=== PATIENT | female | born 1985 | race African-American/Black ===

== ENCOUNTER 2018-03-01 10:13 | Emergency (ER) | payer OTHER ==
[2018-03-01 10:44] VITALS: BP 106/70
[2018-03-01] MEDS ORDERED: MOTRIN PO ONE (11:28)
[2018-03-01] MEDS ORDERED: LIDOCAINE VISCOUS 2% PO ONE (11:28)
--- NOTE | 2018-03-01 11:56 | Emergency Department Report ---
ED ENT HPI - General Chief complaint: Sore Throat Stated complaint: SORE THROAT Time Seen by Provider: 03/01/18 11:22 Source: patient Mode of arrival: Ambulatory Limitations: Language Barrier - History of Present Illness Initial comments: This is a 32-year-old female nontoxic, well nourished in appearance, no acute signs of distress presents to the ED with c/o of sore throat 3 days. Patient describes sore throat as swallowing razer blades. Patient denies any fever, chills, headache, stiff neck, nausea, vomiting, chest pain, shortness of breath , numbness or tingling. Patient denies any drooling or hoarseness. Patient denies any allergies or significant past medical history. 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 MD complaint: sore throat -: days(s) (3) Location: throat Severity: mild Severity scale (0 -10): 8 Consistency: constant Improves with: none Worsens with: swallowing Associated Symptoms: pain with swallowing, sore throat. denies: fever, cough, gum swelling, toothache, tinnitus, hearing loss, discharge from ear, rhinorrhea - Related Data Previous Rx's Medication Instructions Recorded Last Taken Type Amoxicillin [Amoxicillin TAB] 875 mg PO BID #14 tablet 03/01/18 Unknown Rx Ibuprofen [Motrin] 600 mg PO Q8H PRN #30 tablet 03/01/18 Unknown Rx Nystas/Diphen/Xyl Visc/Mylanta 15 ml MM Q4H PRN 10 Days ml 03/01/18 Unknown Rx [Magic Mouthwash] Allergies Allergy/AdvReac Type Severity Reaction Status Date / Time No Known Allergies Allergy Unverified 03/01/18 10:44 ED Dental HPI - General Chief complaint: Sore Throat Stated complaint: SORE THROAT Time Seen by Provider: 03/01/18 11:22 Source: patient Mode of arrival: Ambulatory Limitations: Language Barrier - Related Data Previous Rx's Medication Instructions Recorded Last Taken Type Amoxicillin [Amoxicillin TAB] 875 mg PO BID #14 tablet 03/01/18 Unknown Rx Ibuprofen [Motrin] 600 mg PO Q8H PRN #30 tablet 03/01/18 Unknown Rx Nystas/Diphen/Xyl Visc/Mylanta 15 ml MM Q4H PRN 10 Days ml 03/01/18 Unknown Rx [Magic Mouthwash] Allergies Allergy/AdvReac Type Severity Reaction Status Date / Time No Known Allergies Allergy Unverified 03/01/18 10:44 ED Review of Systems ROS: Stated complaint: SORE THROAT Other details as noted in HPI Constitutional: denies: chills, fever Eyes: denies: eye pain, eye discharge, vision change ENT: throat pain. denies: ear pain Respiratory: denies: cough, shortness of breath, wheezing Cardiovascular: denies: chest pain, palpitations Endocrine: no symptoms reported Gastrointestinal: denies: abdominal pain, nausea, diarrhea Genitourinary: denies: urgency, dysuria, discharge Musculoskeletal: denies: back pain, joint swelling, arthralgia Skin: denies: rash, lesions Neurological: denies: headache, weakness, paresthesias Psychiatric: denies: anxiety, depression Hematological/Lymphatic: denies: easy bleeding, easy bruising ED Past Medical Hx - Past Medical History Previous Medical History?: Yes Additional medical history: vaginal delivery x 5 - Surgical History Past Surgical History?: No - Social History Smoking Status: Never Smoker Substance Use Type: None - Medications Home Medications: Home Medications Medication Instructions Recorded Confirmed Last Taken Type Amoxicillin [Amoxicillin TAB] 875 mg PO BID #14 tablet 03/01/18 Unknown Rx Ibuprofen [Motrin] 600 mg PO Q8H PRN #30 tablet 03/01/18 Unknown Rx Nystas/Diphen/Xyl Visc/Mylanta 15 ml MM Q4H PRN 10 Days ml 03/01/18 Unknown Rx [Magic Mouthwash] ED Physical Exam - General Limitations: Language Barrier General appearance: alert, in no apparent distress - Head Head exam: Present: atraumatic, normocephalic - Eye Eye exam: Present: normal appearance Pupils: Present: normal accommodation - ENT ENT exam: Present: mucous membranes moist, TM's normal bilaterally, normal external ear exam - Expanded ENT Exam Expanded Ear exam: Present: normal external inspection Mouth exam: Present: normal external inspection, tongue normal. Absent: drooling, trismus, muffled voice, tongue elevation, laceration Teeth exam: Present: normal inspection Throat exam: Positive: tonsillar erythema, tonsillomegaly (2+), other (Uvula midline. No abscess or swelling noted. ). Negative: tonsillar exudate, R peritonsillar mass, L peritonsillar mass - Neck Neck exam: Present: normal inspection, full ROM, lymphadenopathy (bilateral tonsillar). Absent: tenderness, meningismus - Respiratory Respiratory exam: Present: normal lung sounds bilaterally. Absent: respiratory distress, wheezes, rales, rhonchi, stridor, chest wall tenderness, accessory muscle use, decreased breath sounds, prolonged expiratory - Cardiovascular Cardiovascular Exam: Present: regular rate, normal rhythm, normal heart sounds. Absent: bradycardia, tachycardia, irregular rhythm, systolic murmur, diastolic murmur, rubs, gallop - GI/Abdominal GI/Abdominal exam: Present: soft, normal bowel sounds - Extremities Exam Extremities exam: Present: normal inspection, full ROM, normal capillary refill - Back Exam Back exam: Present: normal inspection, full ROM - Neurological Exam Neurological exam: Present: alert, oriented X3, normal gait - Psychiatric Psychiatric exam: Present: normal affect, normal mood - Skin Skin exam: Present: warm, dry, intact, normal color. Absent: rash ED Course Vital Signs 03/01/18 03/01/18 10:39 11:44 Temperature 97.8 F Pulse Rate 79 Respiratory 18 18 Rate Blood Pressure 106/70 O2 Sat by Pulse 97 Oximetry - Reevaluation(s) Reevaluation #1: 03/01/18 11:54 Patient is speaking in full sentences with no signs of distress noted. Critical care attestation.: If time is entered above; I have spent that time in minutes in the direct care of this critically ill patient, excluding procedure time. ED Disposition Clinical Impression: Tonsillitis Pharyngitis Qualifiers: Pharyngitis/tonsillitis etiology: unspecified etiology Qualified Code(s): J02.9 - Acute pharyngitis, unspecified Disposition: DC-01 TO HOME OR SELFCARE Is pt being admited?: No Does the pt Need Aspirin: No Condition: Stable Instructions: Amoxicillin (By mouth), Tonsillitis (ED) Additional Instructions: Follow-up with a primary care doctor in 3-5 days or if symptoms worsen and continue return to emergency room as soon as possible. Prescriptions: Amoxicillin [Amoxicillin TAB] 875 mg PO BID #14 tablet Ibuprofen [Motrin] 600 mg PO Q8H PRN #30 tablet PRN Reason: Pain Nystas/Diphen/Xyl Visc/Mylanta [Magic Mouthwash] 15 ml MM Q4H PRN 10 Days ml PRN Reason: Sore Throat Referrals: PRIMARY CARE, [Primary Care Provider] - 3-5 Days LOLY TAVAREZ MD [Staff Physician] - 3-5 Days [facility] [Outside] - 3-5 Days [facility] [Outside] - 3-5 Days Forms: Work/School Release Form(ED) Print Language: NOR[place] KORE[place]
== END 2018-03-01 12:18 | disposition home or self-care (01) ==
LOC: ED 10:13
DX: J03.90 Acute tonsillitis, unspecified (principal)
CPT/HCPCS: 99282

== ENCOUNTER 2021-10-26 09:07 | Day surgery (SDC) | payer MEDICAID ==
[~2021-10-26 09:07] MED LIST: LACTATED RINGERS 1,000 ML IV SCH; MIDAZOLAM 2 MG/2 ML INJ IV NR
--- NOTE | 2021-10-26 10:46 | Anesthesia Consultation ---
Anesthesia Consult and Med Hx Date of service: 10/26/21 - Airway Anesthetic Teeth Evaluation: Good ROM Head & Neck: Adequate Mental/Hyoid Distance: Adequate Mallampati Class: Class III Intubation Access Assessment: Possibly Difficult - Pre-Operative Health Status ASA Pre-Surgery Classification: ASA3 Proposed Anesthetic Plan: General - Pulmonary Hx Smoking: No Hx Respiratory Symptoms: No - Cardiovascular System Hx Hypertension: No (HLD) - Central Nervous System CVA: No - Endocrine Hx Renal Disease: No Hx Liver Disease: No Hx Insulin Dependent Diabetes: No Hx Non-Insulin Dependent Diabetes: No Hx Thyroid Disease: No - Other Systems Hx Obesity: Yes (BMI 47) - Additional Comments Anesthesia Medical History Comments: No hx anesthetic complications.
--- NOTE | 2021-10-26 10:46 | Anesthesia Day of Surgery ---
Anesthesia Day of Surgery - Day of Surgery Patient Examined: Yes Patient H&P Reviewed: Yes Patient is NPO: Yes
[2021-10-26] MEDS ORDERED: HYDROmorphone 1 MG/1 ML INJ IV PRN (11:00)
[2021-10-26] MEDS ORDERED: HYDROcodone/ACETAMINOPHEN 5-325 MG TAB PO PRN (11:00)
[2021-10-26] MEDS ORDERED: ONDANSETRON 4 MG/2 ML INJ IV PRN (11:00)
[2021-10-26] MEDS ORDERED: LIDOCAINE 1%/EPINEPHRINE 1:100,000 VIAL (20 ML) INFILTRATI ONE ×2 (11:41→11:42)
[2021-10-26] MEDS ORDERED: FERRIC SUBSULFATE TOPICAL SOLN 8 ML TP ONE ×2 (11:41→12:05)
[2021-10-26] MEDS ORDERED: POTASSIUM IODIDE/IODINE (LUGOLS) 30 ML TP ONE ×2 (11:41→12:05)
--- NOTE | 2021-10-26 11:41 | Operative Report ---
Operative Report Operative Report: Preoperative diagnosis: 36-year-old with history of ETHAN-3 Postoperative diagnosis: Same: large sections of dysplasia identifed with Lugol's solution removed with Loop electrocautery Procedure: Exam under anesthesia,LEEFish Surgeon: Dr. Narcisa Oswald Anesthesia: GETA Complications: None IV fluids: 1 L crystalloid Urine output: 30 cc clear Estimated blood loss: Less than 10 cc Drains: None Findings: Exam under anesthesia revealed smooth pelvic parametria with no nodularity cobblestoning or masses. The uterus was midline and no adnexal masses were palpable. Rectovaginal septum is smooth. Rectal exam revealed no masses or gross heme. Speculum exam revealed pink vaginal mucosa with loss of rugae, cervix midline,large area of both ectropion and cervical dysplasia identifed with Lugol's solution. Procedure: Patient was seen in preop holding area with her daughter where she received patient was counseled about risks benefits and possible complications of the procedure. All alternatives were reviewed. Plan intraoperative and postoperative course discussed in detail. Pictures were used for visualization and education purposes. All questions and concerns were reviewed and then informed consent was obtained. Consent was obtained with a box annealer. Patient was then taken to the operating room where she was placed in the dorsal supine position. She received excellent general endotracheal anesthesia. Exam under anesthesia and speculum exam revealed the above. 30 cc clear urine was obtained with a red rubber catheter. A speculum was placed in the vaginal vault the cervix identified. A loop electrosurgical excision procedure was then done in the usual fashion.All identified areas of cervical dysplasia removed ~4cm of transformation taryn. An adequate cervical cone biopsy was obtained and sent to pathology. A rollerball was used for a cautery. Excellent hemostasis at the completion of the procedure. The speculum was removed from the vaginal vault. Patient's family was notified of her stable condition and intraoperative course at the completion of the procedure. She was extubated and taken to PACU in stable condition. All sponge needle instrument counts were correct x2. She will follow-up in the outpatient setting. Dr Narcisa Oswald
[2021-10-26] MEDS ORDERED: KETAMINE/STERILE WATER 50 MG/ML SYRINGE ONE (11:45)
[2021-10-26] MEDS ORDERED: propofoL 200 MG/20 ML VIAL IV ONE (11:45)
[2021-10-26] MEDS ORDERED: dexAMETHasone 20 MG/5 ML VIAL ONE (11:50)
[2021-10-26] MEDS ORDERED: LIDOCAINE MPF (2%) 20 MG/1 ML VIAL 5 ML ONE (11:50)
[2021-10-26] MEDS ORDERED: KETOROLAC 30 MG/1 ML INJ ONE (11:50)
[2021-10-26] MEDS ORDERED: ONDANSETRON 4 MG/2 ML INJ ONE (11:50)
--- NOTE | 2021-10-26 13:43 | Post Anesthesia Evaluation ---
- Post Anesthesia Evaluation Patient Participated: Yes Airway Patent: Yes Stable Respiratory Function: Yes Nausea/Vomiting: No Temp > 96.8F: Yes Pain Manageable: Yes Adequeate Hydration: Yes Anesthesia Complications: No
[2021-10-26 15:34] VITALS: BP 117/70
== END 2021-10-26 14:15 | disposition home or self-care (01) ==
LOC: OR 09:07
PROVIDERS: ATTEND Obstetrics & Gynecology
DX: N87.9 Dysplasia of cervix uteri, unspecified (principal); D06.9 Carcinoma in situ of cervix, unspecified; I10 Essential (primary) hypertension; E66.9 Obesity, unspecified; K21.9 Gastro-esophageal reflux disease without esophagitis; Z79.899 Other long term (current) drug therapy; Z68.42 Body mass index [BMI] 45.0-49.9, adult; Z20.822 Contact with and (suspected) exposure to COVID-19
CPT/HCPCS: 57522; 81025; 88305; J1100; J1170; J1885; J2250; J2405; J2704; J3490; J7120; U0003; 88307

== ENCOUNTER 2021-10-30 18:48 | Emergency (ER) | payer MEDICAID ==
[2021-10-30] MEDS ORDERED: ONDANSETRON 4 MG/2 ML INJ IV ONE (21:24)
[2021-10-30] MEDS ORDERED: SODIUM CHLORIDE 0.9% 1000 ML 1,000 ML IV ONE (21:24)
--- NOTE | 2021-10-30 22:07 | Emergency Department Report ---
ED Abdominal Pain HPI - General Chief Complaint: Abdominal Pain Stated Complaint: PAIN Time Seen by Provider: 10/30/21 21:23 Source: patient Mode of arrival: Ambulatory Limitations: Language Barrier - History of Present Illness Initial Comments: Patient 36-year-old Latvian-speaking female who presents with bilateral lower abdominal pain x1 week, last menstrual cycle 2 weeks ago. Patient had gy n procedure 3 days ago by [facility], for Loop electrocautery for dx cervical dysplagie, Patient denies flank pain there is no dysuria frequency o r urgency. Patient pt presents tonight of complaint of abdominal pain, Described as cramping05/26. Symptoms are exacerbated by palpation and movement. Symptoms are relieved by nothing tried. Production Operations Engineer was used for this case. pt denies fever or chills, no vomiting. MD Complaint: abdominal pain Migration to: no migration - Related Data Previous Rx's Medication Instructions Recorded Last Taken Type Ibuprofen [Motrin] 600 mg PO Q8H PRN #60 tablet 10/26/21 Unknown Rx Acetaminophen/Codeine [Tylenol 1 tab PO Q6H PRN #12 tab 10/31/21 Unknown Rx /Codeine # 3 tab] cephALEXin [Keflex] 500 mg PO BID 7 Days #14 cap 10/31/21 Unknown Rx Allergies Allergy/AdvReac Type Severity Reaction Status Date / Time No Known Allergies Allergy Verified 10/30/21 18:56 ED Review of Systems ROS: Stated complaint: PAIN Other details as noted in HPI Constitutional: denies: chills, fever Eyes: denies: eye pain, eye discharge, vision change ENT: denies: ear pain, throat pain Respiratory: no symptoms reported Cardiovascular: denies: chest pain, palpitations Endocrine: no symptoms reported Gastrointestinal: abdominal pain, nausea. denies: vomiting, diarrhea, constipation, melena Genitourinary: denies: urgency, dysuria, hematuria, discharge, dyspareunia Musculoskeletal: denies: back pain, joint swelling, arthralgia Skin: denies: rash, lesions Neurological: headache. denies: weakness, numbness, paresthesias, confusion, vertigo Psychiatric: denies: anxiety, depression Hematological/Lymphatic: as per HPI ED Past Medical Hx - Past Medical History Hx Hypertension: No (HLD) Hx GERD: Yes Hx Liver Disease: No Hx Renal Disease: No Additional medical history: vaginal delivery x 5 - Social History Smoking Status: Never Smoker - Medications Home Medications: Home Medications Medication Instructions Recorded Confirmed Last Taken Type Ibuprofen [Motrin] 600 mg PO Q8H PRN #60 tablet 10/26/21 Unknown Rx Acetaminophen/Codeine [Tylenol 1 tab PO Q6H PRN #12 tab 10/31/21 Unknown Rx /Codeine # 3 tab] cephALEXin [Keflex] 500 mg PO BID 7 Days #14 cap 10/31/21 Unknown Rx ED Physical Exam - General Limitations: Language Barrier General appearance: alert, in no apparent distress - Head Head exam: Present: normocephalic, normal inspection - Eye Eye exam: Present: normal appearance, PERRL, EOMI Pupils: Present: normal accommodation - ENT ENT exam: Present: mucous membranes moist - Neck Neck exam: Present: normal inspection - Respiratory Respiratory exam: Present: normal lung sounds bilaterally. Absent: respiratory distress, wheezes, stridor - Cardiovascular Cardiovascular Exam: Present: regular rate, normal rhythm, normal heart sounds - GI/Abdominal GI/Abdominal exam: Present: soft, tenderness (Bilateral lower abdominal), normal bowel sounds. Absent: distended, guarding, rebound, rigid, bruit, hernia - Expanded GI/Abdominal Exam Expanded GI/Abdominal exam: Absent: psoas sign, obturator sign, heel tap sign, Blanton's sign, Rovsing's sign - Rectal Rectal exam: Present: deferred - External exam: Present: other (deferred per patient ) - Extremities Exam Extremities exam: Present: normal inspection, full ROM. Absent: tenderness - Back Exam Back exam: Present: normal inspection, full ROM. Absent: CVA tenderness (R), CVA tenderness (L) - Neurological Exam Neurological exam: Present: alert, oriented X3, CN II-XII intact, normal gait - Expanded Neurological Exam Expanded Patient oriented to: Present: person, place, time Best Eye Response ([place]): (4) open spontaneously Best Motor Response ([place]): (6) obeys commands Best Verbal Response ([place]): (5) oriented Sammi Total: 15 - Psychiatric Psychiatric exam: Present: normal affect, normal mood - Skin Skin exam: Present: warm, dry, intact, normal color. Absent: rash ED Course Vital Signs 10/31/21 10/31/21 03:42 03:49 Temperature 97 F L Pulse Rate 87 Respiratory 18 18 Rate Blood Pressure 113/60 [Left] O2 Sat by Pulse 97 Oximetry ED Medical Decision Making - Lab Data Result diagrams: 10/30/21 Unknown 10/30/21 Unknown Labs 10/30/21 10/30/21 10/31/21 Unknown Unknown 00:18 WBC 8.7 RBC 5.23 H Hgb 14.5 H Hct 44.3 H MCV 85 MCH 28 MCHC 33 RDW 13.7 Plt Count 326 Lymph % (Auto) 33.2 [place] % (Auto) 7.5 H Eos % (Auto) 1.5 Baso % (Auto) 0.4 Lymph # (Auto) 2.9 [place] # (Auto) 0.7 Eos # (Auto) 0.1 Baso # (Auto) 0.0 Seg Neutrophils % 57.4 Seg Neutrophils # 5.0 Sodium 140 Potassium 4.1 Chloride 104.9 Carbon Dioxide 21 L Anion Gap 18 BUN 9 Creatinine 0.6 Estimated GFR > 60 BUN/Creatinine Ratio 15 Glucose 97 Calcium 9.6 Total Bilirubin 0.50 AST 21 ALT 25 Alkaline Phosphatase 66 Total Protein 7.5 Albumin 4.7 Albumin/Globulin Ratio 1.7 Lipase 28 HCG, Quant Urine Color Straw Urine Turbidity Slightly-cloudy Urine pH 5.0 Ur Specific [place] 1.008 Urine Protein <15 mg/dl Urine Glucose (UA) Neg Urine Ketones Neg Urine Blood Lg Urine Nitrite Neg Ur Reducing Substances Not Reportable Urine Bilirubin Neg Urine Ictotest Not Reportable Urine Urobilinogen < 2.0 Ur Leukocyte Esterase Lg Urine WBC (Auto) 72.0 H Urine RBC (Auto) 14.0 U Epithel Cells (Auto) 19.0 H Urine Bacteria (Auto) 2+ Hyaline Casts 2 Urine Mucus Few Urine Yeast (Budding) 1+ Urine HCG, Qual Positive A 10/31/21 03:49 WBC RBC Hgb Hct MCV MCH MCHC RDW Plt Count Lymph % (Auto) [place] % (Auto) Eos % (Auto) Baso % (Auto) Lymph # (Auto) [place] # (Auto) Eos # (Auto) Baso # (Auto) Seg Neutrophils % Seg Neutrophils # Sodium Potassium Chloride Carbon Dioxide Anion Gap BUN Creatinine Estimated GFR BUN/Creatinine Ratio Glucose Calcium Total Bilirubin AST ALT Alkaline Phosphatase Total Protein Albumin Albumin/Globulin Ratio Lipase HCG, Quant 1206 H Urine Color Urine Turbidity Urine pH Ur Specific [place] Urine Protein Urine Glucose (UA) Urine Ketones Urine Blood Urine Nitrite Ur Reducing Substances Urine Bilirubin Urine Ictotest Urine Urobilinogen Ur Leukocyte Esterase Urine WBC (Auto) Urine RBC (Auto) U Epithel Cells (Auto) Urine Bacteria (Auto) Hyaline Casts Urine Mucus Urine Yeast (Budding) Urine HCG, Qual - Radiology Data Radiology results: report reviewed, image reviewed LTRASOUND OBSTETRIC REASON FOR EXAM: PAIN TECHNIQUE: Transabdominal and transvaginal ultrasound was performed to evaluate a first trimester . COMPARISON: None available. FINDINGS: FINDINGS: Small cystic structure within the region of the endometrium may reflect a small intrauterine gestational sac. This measures 4.6 mm in mean sac diameter, corresponding to a gestational age of 5 weeks and 2 days. No yolk sac or pole is identified at this time, likely due to early gestational age. MATERNAL FINDINGS: The uterus demonstrates an otherwise unremarkable sonographic appearance. The right ovary demonstrates a normal sonographic appearance. The left ovary demonstrates a normal sonographic appearance. Cul-de-sac: There is no free fluid. IMPRESSION: IUP of uncertain viability. Probable small intrauterine gestational sac without discrete yolk sac or pole identified at this time. This may be due to early gestational age. Recommend continued follow-up with beta hCG and pelvic ultrasound, as clinically indicated. Signer Name: Moses Lacey MD Signed: 10/31/2021 4:03 AM Workstation Name: [id number] - Medical Decision Making Ultrasound pelvis demonstrates possible single IUP 80s at 5 weeks and 2 days no heart tones no pole noted. Recommend follow-up with FLOUR MIXER HELPER. There is no free fluid no soft tissue abnormalities no fibroids ovarian cyst noted on exam. Plan patient will follow-up with [facility] tomorrow, for postop evaluation as scheduled. Will be DC'd to home with prescriptions as needed pain medicine, patient will return to the emergency department should symptoms worsen. Verbalizes agreement and understanding with discharge plan. Patient will be D C'd home in stable condition at this time. Gum Rolling Machine Tender was used for this case employee nurse. Patient is currently alert oriented x3 ambulatory with steady gait and tolerating p.o. intake without symptoms. Critical care attestation.: If time is entered above; I have spent that time in minutes in the direct care of this critically ill patient, excluding procedure time. ED Disposition Clinical Impression: Abdominal pain during in first trimester, Post-op pain Disposition: HOME / SELF CARE / HOMELESS Is pt being admited?: No Does the pt Need Aspirin: No Condition: Stable Instructions: Abdominal Pain (ED), Abdominal Pain During , Pain Relief Before and After Surgery Additional Instructions: Take medications as prescribed, follow-up with your [facility] doctor Dr. Hanson call today for sooner appointment. Continue to hydrate. Return to emergency d epartment should symptoms worsen. Prescriptions: cephALEXin [Keflex] 500 mg PO BID 7 Days #14 cap Acetaminophen/Codeine [Tylenol /Codeine # 3 tab] 1 tab PO Q6H PRN #12 tab PRN Reason: pain Referrals: ALISTAIR HANSON MD [Staff Physician] - [facility] (call today for updated appointment) Forms: Work/School Release Form(ED) Time of Disposition: 05:26 Print Language: ENGLISH
[2021-10-30 22:43] LABS: Basophils % (Auto) 0.4 % (0.0-1.8); Eosinophils # (Auto) 0.1 K/mm3 (0.0-0.4); Eosinophils % (Auto) 1.5 % (0.0-4.3); Hematocrit 44.3 % (30.3-42.9); Hemoglobin 14.5 gm/dl (10.1-14.3); Lymphocytes # (Auto) 2.9 K/mm3 (1.2-5.4); Lymphocytes % (Auto) 33.2 % (13.4-35.0); Mean Corpuscular HGB Conc 33 % (30-34); Mean Corpuscular Volume 85 fl (79-97); Monocytes # (Auto) 0.7 K/mm3 (0.0-0.8); Monocytes % (Auto) 7.5 % (0.0-7.3); Platelet Count 326 K/mm3 (140-440); Red Blood Count 5.23 M/mm3 (3.65-5.03); Red Cell Distribution Width 13.7 % (13.2-15.2)
[2021-10-31 01:53] LABS: Alanine Aminotransferase 25 units/L (7-56); Albumin 4.7 g/dL (3.9-5); Blood Urea Nitrogen 9 mg/dL (7-17); Calcium 9.6 mg/dL (8.4-10.2); Hemolysis Index 24
[2021-10-31 03:13] LABS: BUN/Creatinine Ratio 15
[2021-10-31] MEDS ORDERED: ONDANSETRON 4 MG/2 ML INJ IV ONE (03:24)
[2021-10-31] MEDS ORDERED: MORPHINE 4 MG/1 ML INJ IV ONE (03:24)
[2021-10-31 03:46] LABS: Bacteria,Urine 2+ /HPF (Negative); Hyaline Casts,Urine 2 /LPF; Mucus,Urine FEW /HPF
[2021-10-31 04:02] LABS: Bilirubin,Urine NEG (Negative); Blood,Urine LG (Negative); Color,Urine Straw (Yellow); Protein,Urine <15 mg/dL mg/dL (Negative); Urobilinogen,Urine < 2.0 mg/dL (<2.0)
--- NOTE | 2021-10-31 04:07 | Ultrasound Report ---
ULTRASOUND OBSTETRIC REASON FOR EXAM: PAIN TECHNIQUE: Transabdominal and transvaginal ultrasound was performed to evaluate a first trimester pre gnancy. COMPARISON: None available. FINDINGS: FINDINGS: Small cystic structure within the region of the endometrium may reflect a small intrauterine gestatio nal sac. This measures 4.6 mm in mean sac diameter, corresponding to a gestational age of 5 weeks and 2 days. No yolk sac or pole is identified at this time, likely due to early gestational age. MATERNAL FINDINGS: The uterus demonstrates an otherwise unremarkable sonographic appearance. The right ovary demonstrates a normal sonographic appearance. The left ovary demonstrates a normal sonographic appearance. Cul-de-sac: There is no free fluid. IMPRESSION: IUP of uncertain viability. Probable small intrauterine gestational sac without discrete yolk sac or pole identified at this time. This may be due to early gestational age. Recommend continued fol low-up with beta hCG and pelvic ultrasound, as clinically indicated. Signer Name: Moses Lacey MD Signed: 10/31/2021 4:03 AM Workstation Name: [id number]
[2021-10-31 04:17] LABS: HCG Qualitative,Urine Positive (Negative)
[2021-10-31 05:34] VITALS: BP 119/52
== END 2021-10-31 05:36 | disposition home or self-care (01) ==
LOC: ED 18:48
DX: O26.891 Other specified pregnancy related conditions, first trimester (principal); R10.9 Unspecified abdominal pain; G89.18 Other acute postprocedural pain; K21.9 Gastro-esophageal reflux disease without esophagitis; Z3A.01 Less than 8 weeks gestation of pregnancy
CPT/HCPCS: 36415; 76801; 80053; 81001; 81025; 83690; 84702; 85025; 87086; 96361; 96374; 96375; 96376; 99284; J2270; J2405; J7030; Q0162